=== PATIENT | male | born 1970 | race Two or more races ===

== ENCOUNTER 2016-06-20 09:03 | Emergency (ER) | payer OTHER ==
[~2016-06-20] VITALS: Ht 167.6 cm; Wt 75.0 kg
[2016-06-20 09:07] VITALS: BP 158/122; PULSE 71; RESP 16; TEMP 97.4; O2SAT 100
[2016-06-20] MEDS ORDERED: PROP80TA PO (09:12)
[2016-06-20] MEDS ORDERED: ZOLO50TA PO (09:12)
[2016-06-20] MEDS ORDERED: OMEP20TA PO (09:12)
[2016-06-20 10:02] VITALS: BP 153/100; PULSE 72; RESP 18; O2SAT 98
[2016-06-20] MEDS ORDERED: LORazepam 0.5 MG TAB PO ONE (10:15)
[2016-06-20 10:29] LABS: AUTOMATED NEUTROPHIL # 6.7 TH/MM3 (1.8-7.7); BASOPHIL # 0.3 TH/MM3 (0-0.2); EOSINOPHIL # 0.2 TH/MM3 (0-0.4); EOSINOPHIL % 1.8 % (0.0-4.0); HEMATOCRIT 43.3 % (39.0-51.0); HEMO FLAGS DIFF FINAL; LYMPH % 21.4 % (9.0-44.0); LYMPHOCYTE # 2.1 TH/MM3 (1.0-4.8); MEAN CORPUSCULAR HGB CONC 34.8 % (32.0-36.0); MONO % 5.9 % (0.0-8.0); NEUT % 67.9 % (16.0-70.0); PLATELET COUNT 334 TH/MM3 (150-450); RED BLOOD COUNT 4.87 MIL/MM3 (4.50-5.90); RED CELL DISTRIBUTION WIDTH 11.9 % (11.6-17.2); WHITE BLOOD COUNT 9.9 TH/MM3 (4.0-11.0)
[2016-06-20 10:38] LABS: CHLORIDE 105 MEQ/L (98-107); SODIUM (NA) 141 MEQ/L (136-145)
[2016-06-20 10:41] LABS: ANION GAP 10 MEQ/L (5-15); BICARBONATE 26.1 MEQ/L (21.0-32.0)
[2016-06-20 10:42] LABS: BLOOD UREA NITROGEN 14 MG/DL (7-18)
--- NOTE | 2016-06-20 10:43 | PD ---
HPI Chief Complaint: Hypertension Time Seen by Provider: 10:04 Travel History International Travel<30 days: No Contact w/Intl Traveler<30days: No Traveled to known affect area: No History of Present Illness HPI Patient is a 46-year-old male who presents to emergency room with complaints of hypertension. Reports that his primary care doctor has been controlling his blood pressure with propanolol. Reports that his baseline systolic blood pressure is in the 130s. Reports that 4 days ago, he was started on Zoloft for his history of PTSD. Patient reports that he is on propanolol for his blood pressure - reports that his blood pressure has been fluctuating and his systolic blood pressure has been in the 150s after he started the zoloft. Reports concern and increased anxiety over Zoloft as he thinks that this may be increasing his blood pressure. Patient reports that he has been very anxious, and has been having palpitations over his medications. Patient denies chest pain or shortness of breath at this time. Patient denies lightheadedness or dizziness. Patient with no other complaints. PFSH Past Medical History Diminished Hearing: No GERD: Yes Hypertension: Yes Psychiatric: Yes (ptsd) Tetanus Vaccination: < 5 Years Influenza Vaccination: No Past Surgical History Surgical History: No Previous Surgery Family History Family History: Negative Social History Alcohol Use: No Tobacco Use: No Substance Use: No Allergies-Medications (Allergen,Severity, Reaction): Coded Allergies: No Known Allergies (Unverified , 06/20/16) Reported Meds & Prescriptions Reported Meds & Active Scripts Active Reported Propranolol (Propranolol HCl) 80 Mg Tab 80 Mg PO DAILY Omeprazole 20 Mg Tab 20 Mg PO DAILY Zoloft (Sertraline HCl) 50 Mg Tab 50 Mg PO DAILY Review of Systems General / Constitutional: No: Fever Eyes: No: Visual changes HENT: No: Headaches Cardiovascular: No: Chest Pain or Discomfort Respiratory: No: Shortness of Breath Gastrointestinal: No: Abdominal Pain Genitourinary: No: Dysuria Musculoskeletal: No: Pain Skin: No Rash Neurologic: No: Weakness Psychiatric: Positive: Anxiety, No: Depression Endocrine: No: Polydipsia Hematologic/Lymphatic: No: Easy Bruising Physical Exam Narrative GENERAL: nad, nontoxic SKIN: Warm and dry. HEAD: Atraumatic. Normocephalic. EYES: Pupils equal and round. No scleral icterus. No injection or drainage. ENT: No nasal bleeding or discharge. Mucous membranes pink and moist. NECK: Trachea midline. No JVD. CARDIOVASCULAR: Regular rate and rhythm. No murmur appreciated. RESPIRATORY: No accessory muscle use. Clear to auscultation. Breath sounds equal bilaterally. GASTROINTESTINAL: Abdomen soft, non-tender, nondistended. Hepatic and splenic margins not palpable. MUSCULOSKELETAL: No obvious deformities. No clubbing. No cyanosis. No edema. NEUROLOGICAL: Awake and alert. No obvious cranial nerve deficits. Motor grossly within normal limits. Normal speech. Cranial nerves 2- 12 grossly intact with no deficits PSYCHIATRIC: Patient extremely anxious on exam Data Data Last Documented VS Vital Signs Date Time Temp Pulse Resp B/P Pulse Ox O2 Delivery O2 Flow Rate FiO2 06/20/16 10:02 72 18 153/100 98 Room Air 06/20/16 09:07 97.4 Orders Electrocardiogram (06/20/16 10:10) Complete Blood Count With Diff (06/20/16 10:10) Comprehensive Metabolic Panel (06/20/16 10:10) Ecg Monitoring (06/20/16 10:10) Iv Access Insert/Monitor (06/20/16 10:10) Lorazepam (Ativan) (06/20/16 10:15) Chest, Pa & Lat (06/20/16 ) Labs Laboratory Tests Test 06/20/16 10:20 White Blood Count 9.9 TH/MM3 Red Blood Count 4.87 MIL/MM3 Hemoglobin 15.1 GM/DL Hematocrit 43.3 % Mean Corpuscular Volume 89.0 FL Mean Corpuscular Hemoglobin 31.0 PG Mean Corpuscular Hemoglobin 34.8 % Concent Red Cell Distribution Width 11.9 % Platelet Count 334 TH/MM3 Mean Platelet Volume 8.0 FL Neutrophils (%) (Auto) 67.9 % Lymphocytes (%) (Auto) 21.4 % Monocytes (%) (Auto) 5.9 % Eosinophils (%) (Auto) 1.8 % Basophils (%) (Auto) 3.0 % Neutrophils # (Auto) 6.7 TH/MM3 Lymphocytes # (Auto) 2.1 TH/MM3 Monocytes # (Auto) 0.6 TH/MM3 Eosinophils # (Auto) 0.2 TH/MM3 Basophils # (Auto) 0.3 TH/MM3 CBC Comment DIFF FINAL Differential Comment Sodium Level 141 MEQ/L Potassium Level 4.0 MEQ/L Chloride Level 105 MEQ/L Carbon Dioxide Level 26.1 MEQ/L Anion Gap 10 MEQ/L Blood Urea Nitrogen 14 MG/DL Creatinine 1.10 MG/DL Estimat Glomerular Filtration 71 ML/MIN Rate Random Glucose 119 MG/DL Calcium Level 9.4 MG/DL Total Bilirubin 0.9 MG/DL Aspartate Amino Transf 8 U/L (AST/SGOT) Alanine Aminotransferase 28 U/L (ALT/SGPT) Alkaline Phosphatase 86 U/L Total Protein 7.9 GM/DL Albumin 4.2 GM/DL MDM Medical Decision Making Medical Screen Exam Complete: Yes Emergency Medical Condition: Yes Interpretation(s) ekg: nsr at 62bpm, qt/qtc: 402/405, no acute st or t wave changes Vital Signs Date Time Temp Pulse Resp B/P Pulse Ox O2 Delivery O2 Flow Rate FiO2 06/20/16 10:02 72 18 153/100 98 Room Air 06/20/16 09:42 72 18 100 Room Air 06/20/16 09:07 97.4 71 16 158/122 100 Laboratory Tests Test 06/20/16 10:20 White Blood Count 9.9 TH/MM3 (4.0-11.0) Red Blood Count 4.87 MIL/MM3 (4.50-5.90) Hemoglobin 15.1 GM/DL (13.0-17.0) Hematocrit 43.3 % (39.0-51.0) Mean Corpuscular Volume 89.0 FL (80.0-100.0) Mean Corpuscular Hemoglobin 31.0 PG (27.0-34.0) Mean Corpuscular Hemoglobin 34.8 % Concent (32.0-36.0) Red Cell Distribution Width 11.9 % (11.6-17.2) Platelet Count 334 TH/MM3 (150-450) Mean Platelet Volume 8.0 FL (7.0-11.0) Neutrophils (%) (Auto) 67.9 % (16.0-70.0) Lymphocytes (%) (Auto) 21.4 % (9.0-44.0) Monocytes (%) (Auto) 5.9 % (0.0-8.0) Eosinophils (%) (Auto) 1.8 % (0.0-4.0) Basophils (%) (Auto) 3.0 % (0.0-2.0) Neutrophils # (Auto) 6.7 TH/MM3 (1.8-7.7) Lymphocytes # (Auto) 2.1 TH/MM3 (1.0-4.8) Monocytes # (Auto) 0.6 TH/MM3 (0-0.9) Eosinophils # (Auto) 0.2 TH/MM3 (0-0.4) Basophils # (Auto) 0.3 TH/MM3 (0-0.2) CBC Comment DIFF FINAL Differential Comment Differential Diagnosis Medication reaction, anxiety, electrolyte abnormality, uncontrolled hypertension Narrative Course Patient is a 46-year-old male who presents most room with complaints of uncontrolled hypertension. Patient is currently taking propanolol for his hypertension, reports that his baseline systolic blood pressure is in the 130s. Patient has been taking Zoloft for the past 4 days for treatment of his PTSD, reports that for the past 4 days, his blood pressure has been fluctuating and has been higher than normal. Patient concerned that his Zoloft is causing his blood pressure to "go out of control." Patient anxious on evaluation. VSS EKG, CBC, BMP ordered to evaluate for end organ damage Pt with normal neurological exam Discussed with pt need to stop Zoloft if this is the medication he recently started when his blood pressure has "gone out of control" Pt very anxious on exam, will give a dose of ativan and re-evaluate pt Patient reevaluated, patient feeling much better. Patient will stop his Zoloft and will follow-up with his primary doctor. All labs and all studies reviewed with patient. Patient instructed to follow up with his primary care doctor on Tuesday or Tuesday for blood pressure recheck. Signs and symptoms of when to return to the emergency room reviewed patient in detail Diagnosis Primary Impression: Hypertension Qualified Code: I10 - Essential hypertension Additional Impressions: Medication reaction Qualified Code: T88.7XXA - Medication reaction, initial encounter Anxiety Patient Instructions: General Instructions Additional Instructions: Please provide a copy of patient's labwork at discharge Please follow-up with your primary care doctor Please stop taking Zoloft Please follow-up with primary care doctor on Tuesday or Tuesday for repeat blood pressure check Return to ER as needed Please bring your discharge paperwork as well as your lab work obtained today to doctor's office for follow-up Disposition: 01 DISCHARGE HOME Condition: Marimar Almanza DO Jun 20, 2016 10:43
[2016-06-20 10:44] LABS: ALT (GPT) 28 U/L (12-78); AST (GOT) 8 U/L (15-37)
[2016-06-20 10:45] LABS: GLOMERULAR FILTRATION RATE 71 ML/MIN (>89)
[2016-06-20 10:46] LABS: TOTAL BILIRUBIN ADULT 0.9 MG/DL (0.2-1.0)
[2016-06-20 10:47] LABS: ALKALINE PHOSPHATASE 86 U/L (45-117)
[2016-06-20 11:30] VITALS: BP 153/100
--- NOTE | 2016-06-20 11:30 | RADHPO ---
EXAM DATE/TIME: 06/20/2016 11:08 [facility] COMPARISON: No previous studies available for comparison. INDICATIONS : Chest discomfort. Heart palpitations. Increased blood pressure. MEDICAL HISTORY : Hypertension. SURGICAL HISTORY : None. ENCOUNTER: Initial ACUITY: 1 day PAIN SCORE: 2/10 LOCATION: Left chest FINDINGS: PA and lateral views of the chest demonstrate the lungs to be symmetrically aerated without evidence of mass, infiltrate or effusion. The cardiomediastinal contours are unremarkable. Osseous structure s are intact. CONCLUSION: Normal examination. Demetris Blas MD on June 20, 2016 at 11:29 Board Certified Radiologist. This report was verified electronically.
--- NOTE | 2016-06-21 18:25 | EKG ---
Date Performed: 06/20/2016 Time Performed: 09:11:36 PTAGE: 46 years EKG: Sinus rhythm Normal ECG NO PREVIOUS TRACING DOCTOR: Maddi Oconnor Interpretating Date/Time 06/21/2016 18:24:05
--- NOTE | 2016-06-21 18:26 | EKG ---
Date Performed: 06/20/2016 Time Performed: 11:09:06 PTAGE: 46 years EKG: Sinus rhythm Since previous tracing, no significant change noted Normal ECG PREVIOUS TRACING : 06/20/2016 09.11 DOCTOR: Maddi Oconnor Interpretating Date/Time 06/21/2016 18:24:16
== END 2016-06-20 11:35 | disposition home or self-care (01) ==
LOC: PHED 09:03 → PHEFT 11:35
DX: I10 Essential (primary) hypertension (principal); T88.7XXA Unspecified adverse effect of drug or medicament, initial encounter; F41.9 Anxiety disorder, unspecified; F43.10 Post-traumatic stress disorder, unspecified; Z79.899 Other long term (current) drug therapy; Z87.19 Personal history of other diseases of the digestive system
CPT/HCPCS: 71020; 80053; 85025; 93005